=== PATIENT | male | born 1980 | race Caucasian/White ===

== ENCOUNTER 2017-05-25 10:12 | Emergency (ER) | payer SELFPAY ==
[~2017-05-25] VITALS: Ht 157.5 cm; Wt 74.5 kg
[2017-05-25 10:28] VITALS: BP 122/87; PULSE 72; RESP 18; TEMP 98.1; O2SAT 98
[2017-05-25] MEDS ORDERED: ACETAMINOPHEN/HYDROcodone 325 MG/5 MG TAB PO ONE (11:45)
[2017-05-25] MEDS ORDERED: ORPHENADRINE INJ 60 MG/2 ML AMP IM ONE (11:45)
--- NOTE | 2017-05-25 11:46 | PD ---
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 Patient states that his pain started a few days ago which was paraspinous of the thoracic spine and this morning he took a deep breath felt a pop and ever since his been having spasmodic pain in the left flank. Denies any dysuria, denies any shortness of breath but states it is painful when he takes a deep breath. States is never happened to him before, denies any exertional injury, denies any blunt trauma. States the pain is fairly severe, left flank, context and associated signs and symptoms as above. PFSH Past Medical History Medical History: Denies Significant Hx Diminished Hearing: No Influenza Vaccination: No ?: Not Past Surgical History Surgical History: No Previous Surgery Social History Alcohol Use: No Tobacco Use: Yes Allergies-Medications (Allergen,Severity, Reaction): Coded Allergies: No Known Allergies (Unverified , 05/25/17) Reported Meds & Prescriptions Reported Meds & Active Scripts Active Flexeril (Cyclobenzaprine HCl) 10 Mg Tab 10 Mg PO TID Wayne (Hydrocodone-Acetaminophen) 10-325 Mg Tab 1 Tab PO Q6H PRN Review of Systems Except as stated in HPI: all other systems reviewed are Neg Physical Exam Narrative GENERAL: Well-developed well-nourished appears somewhat uncomfortable peer SKIN: Focused skin assessment warm/dry. HEAD: Atraumatic. Normocephalic. EYES: Pupils equal and round. No scleral icterus. No injection or drainage. ENT: No nasal bleeding or discharge. Mucous membranes pink and moist. NECK: Trachea midline. No JVD. CARDIOVASCULAR: Regular rate and rhythm. No murmur appreciated. RESPIRATORY: No accessory muscle use. Clear to auscultation. Breath sounds equal bilaterally. GASTROINTESTINAL: Abdomen soft, non-tender, nondistended. Hepatic and splenic margins not palpable. MUSCULOSKELETAL: No obvious deformities. No clubbing. No cyanosis. No edema. Palpable muscle spasm over the left inferior ribs in the midaxillary line. Palpable chest wall pain. No midline CT or L-spine tenderness. NEUROLOGICAL: Awake and alert. No obvious cranial nerve deficits. Motor grossly within normal limits. Normal speech. PSYCHIATRIC: Appropriate mood and affect; insight and judgment normal. Data Data Last Documented VS Vital Signs Date Time Temp Pulse Resp B/P (MAP) Pulse Ox O2 Delivery O2 Flow Rate FiO2 05/25/17 12:57 18 05/25/17 10:28 98.1 72 122/87 (99) 98 Orders Orders Electrocardiogram (05/25/17 11:44) Orphenadrine Inj (Norflex Inj) (05/25/17 11:45) Acetamin-Hydrocod 325-5 Mg (Wayne 5-325 (05/25/17 11:45) Ribs, Uni (W/Exp Cxr-Min 3vw) (05/25/17 ) Ed Discharge Order (05/25/17 13:06) [facility] Medical Decision Making Medical Screen Exam Complete: Yes Emergency Medical Condition: Yes Differential Diagnosis Muscle spasm, rib contusion, pneumothorax, Narrative Course Patient roomed to the emergency department, he appears well in obvious distress. He demonstrates that when he coughs he has a spasm of the left side of his chest wall. I appreciate no abnormality on his exam except for some tenderness to palpation the chest wall as documented above. Patient had x-rays of his ribs and chest which were negative. EKG which was reassuring. This time there is no indication for further workup. He is stable for discharge. Discussed symptomatic management return to ED criteria and follow-up with his primary care physician or the [facility]. Diagnosis Primary Impression: Chest wall pain Patient Instructions: Chest Wall Pain (ED), General Instructions, How to Stop Smoking (DC) Med/Other Pt SpecificInfo: Prescription(s) given Scripts Cyclobenzaprine (Flexeril) 10 Mg Tab 10 MG PO TID for Muscle Spasm, #20 TAB 0 Refills Prov: Troy Sena MD 05/25/17 Hydrocodone-Acetaminophen (Wayne) 10-325 Mg Tab 1 TAB PO Q6H Y for PAIN, #10 TAB 0 Refills Prov: Troy Sena MD 05/25/17 Disposition: 01 DISCHARGE HOME Condition: Stable Troy Sena MD May 25, 2017 11:46
--- NOTE | 2017-05-25 12:26 | RADRPT ---
EXAM DATE/TIME: 05/25/2017 12:04 [facility] COMPARISON: No previous studies available for comparison. INDICATIONS : Left sided chest wall pain, anterior, lateral , and posterior pain. NKI, pain worse today after cough ing MEDICAL HISTORY : None. SURGICAL HISTORY : None. ENCOUNTER: Initial ACUITY: 3 weeks PAIN SCORE: 10/10 LOCATION: Left chest FINDINGS: Multiple views of the left ribs were performed. There is no evidence of displaced fracture. No dest ructive lesions or areas of periosteal thickening are seen. Expiratory view of the chest is negative for pneumothorax. The mediastinal structures are midline. CONCLUSION: No acute disease. Mirza Francisco MD on May 25, 2017 at 12:21 Board Certified Radiologist. This report was verified electronically.
[2017-05-25 12:57] VITALS: RESP 18
[2017-05-25] MEDS ORDERED: HYDR-3366 PO (13:06)
[2017-05-25] MEDS ORDERED: CYCL10TA PO (13:06)
--- NOTE | 2017-05-26 15:15 | EKG ---
Date Performed: 05/25/2017 Time Performed: 11:54:30 PTAGE: 36 years EKG: SINUS BRADYCARDIA POSSIBLE LATERAL MYOCARDIAL INFARCTION ABNORMAL ECG NO PREVIOUS TRACING DOCTOR: Carmelo Lynn Interpretating Date/Time 05/26/2017 15:11:25
== END 2017-05-25 13:54 | disposition home or self-care (01) ==
LOC: PHED 10:12
DX: R07.89 Other chest pain (principal); R05 Cough; M62.838 Other muscle spasm; R00.1 Bradycardia, unspecified; R94.31 Abnormal electrocardiogram [ECG] [EKG]; Z72.0 Tobacco use
CPT/HCPCS: 71101; 93005; 96372; 99284; J2360